=== PATIENT | male | born 1955 | race Caucasian/White ===

== ENCOUNTER 2021-08-12 12:00 | Outpatient (CLI) | payer MEDICARE, SELFPAY ==
[2021-08-12 21:30] LABS: Chloride* 105 mmol/L (96-114); Potassium* 4.1 mmol/L (3.6-5.1); Sodium* 138 mmol/L (135-149)
[2021-08-12 21:32] LABS: Creatinine* 1.1 mg/dL (0.5-1.5)
[2021-08-12 21:33] LABS: Blood Urea Nitrogen* 18 mg/dL (7-30); Carbon Dioxide* 26 mmol/L (20-32); Glucose* 100 mg/dL (60-115); Uric Acid* 8.3 mg/dL (2.2-8.4)
[2021-08-12 21:34] LABS: Calcium* 9.6 mg/dL (8.4-10.6)
== END 2021-08-12 12:01 | disposition home or self-care (01) ==
PROVIDERS: PCP Physician Assistant Medical; Visit Provider Family Medicine
DX: M10.9 Gout, unspecified (principal); I10 Essential (primary) hypertension
CPT/HCPCS: 80048; 84550

== ENCOUNTER 2022-04-20 08:41 | Outpatient (CLI) | payer MEDICARE, SELFPAY | END 2022-04-20 08:42 | disposition home or self-care (01) | PROVIDERS: PCP Physician Assistant Medical; Visit Provider Family Medicine | DX: E78.5 Hyperlipidemia, unspecified (principal); I10 Essential (primary) hypertension; M10.462 Other secondary gout, left knee; R79.89 Other specified abnormal findings of blood chemistry; E66.01 Morbid (severe) obesity due to excess calories | CPT/HCPCS: 80053; 80061; 82043; 82306; 82570; 84270; 84402; 84403; 84443; 84550 ==

== ENCOUNTER 2022-07-14 08:59 | Outpatient (CLI) | payer MEDICARE, SELFPAY ==
[2022-07-14 15:29] LABS: Ferritin* 96.5 ng/mL (17.9-464.0)
[2022-07-15 12:26] LABS: Follicle Stimulating Hormone 6.4 IU/L (1.5-12.4); Luteinizing Hormone 6.2 IU/L (1.7-8.6); Sex Hormone Binding Globulin 29 nmol/L (19-76); Testosterone, Adult Male 297 ng/dL (300-720); Testosterone, Free Calculation 57 pg/mL (47-244); Testosterone, Percentage Free 1.9 % (1.6-2.9)
[2022-07-15 21:01] LABS: Prolactin 5.4 ng/mL (2.1-17.7)
== END 2022-07-14 09:00 | disposition home or self-care (01) ==
PROVIDERS: PCP Physician Assistant Medical; Visit Provider Family Medicine
DX: R79.89 Other specified abnormal findings of blood chemistry (principal); R53.83 Other fatigue
CPT/HCPCS: 82728; 83001; 83002; 84146; 84270; 84402; 84403; 84443

== ENCOUNTER 2023-07-19 11:11 | Outpatient (CLI) | payer MEDICARE, SELFPAY | END 2023-07-19 11:12 | disposition home or self-care (01) | LOC: NFLDREF 07-23 16:06 | PROVIDERS: PCP Physician Assistant Medical; Referring Provider Physician Assistant Medical; Visit Provider Physician Assistant Medical | DX: I10 Essential (primary) hypertension (principal); E78.5 Hyperlipidemia, unspecified; R73.03 Prediabetes; M10.4 Other secondary gout; E78.2 Mixed hyperlipidemia | CPT/HCPCS: 80053; 80061; 84443 ==

== ENCOUNTER 2024-12-04 14:18 | Outpatient (CLI) | payer MEDICARE, SELFPAY | END 2024-12-04 14:19 | disposition home or self-care (01) | LOC: NFLDREF 12-06 03:17 | PROVIDERS: PCP Physician Assistant Medical; Referring Provider Physician Assistant Medical; Visit Provider Physician Assistant Medical | DX: M10.9 Gout, unspecified (principal); I10 Essential (primary) hypertension; R73.03 Prediabetes; R79.89 Other specified abnormal findings of blood chemistry; E78.2 Mixed hyperlipidemia; N40.0 Benign prostatic hyperplasia without lower urinary tract symptoms | CPT/HCPCS: 80053; 80061; 84403; 84443; G0103 ==